=== PATIENT | male | born 1975 | race Caucasian/White ===

== ENCOUNTER 2024-12-11 20:07 | Emergency (ER) | payer MEDICAID ==
[~2024-12-11] VITALS: Ht 160 cm; Wt 88.0 kg
[2024-12-11 20:17] VITALS: TEMP 36.6; O2SAT 98
[2024-12-11 20:51] LABS: BASOPHILS % 0.5 % (0.0-2.0); EOSINOPHILS % 0.9 % (0.0-5.0); HEMOGLOBIN. 14.2 g/dL (14.0-18.0); LYMPHOCYTES % 22.9 % (20.0-50.0); MEAN CORPUSCULAR HGB CONC 33.8 g/dL (31.0-37.0); MEAN CORPUSCULAR VOLUME 94.6 fL (80.0-94.0); MEAN PLATELET VOLUME 7.5 fl (7.4-10.4); MONOCYTES % 6.2 % (2.0-8.0); NEUTROPHILS % 69.5 % (40.0-76.0); PLATELET 300 x1000/uL (130-400); RED BLOOD CELL COUNT 4.43 mill/uL (4.7-6.1); RED CELL DISTRIBUTION WIDTH 13.1 % (11.6-14.6); WHITE BLOOD COUNT 6.9 x1000/uL (4.5-11.0)
[2024-12-11] MEDS: DIPHENHYDRAMINE 50MG/ML VIAL IV ONE (20:57)
[2024-12-11] MEDS: KETOROLAC 30MG/ML VIAL IV ONE (20:57)
[2024-12-11 20:58] LABS: CHLORIDE 109 mEq/L (98-107); POTASSIUM 3.9 mEq/L (3.5-5.1)
[2024-12-11] MEDS: MECLIZINE 25MG TABLET PO ONE (20:58)
[2024-12-11 20:59] LABS: CARBON DIOXIDE 25 mEq/L (21-32); SODIUM 140 mEq/L (136-145)
[2024-12-11 21:00] LABS: CALCIUM 9.2 mg/dL (8.7-10.4)
[2024-12-11 21:01] LABS: INR 0.9; PROTHROMBIN TIME 9.9 sec (9.6-11.0)
[2024-12-11 21:04] LABS: CREATININE 0.7 mg/dL (0.6-1.3); GLUCOSE 153 mg/dL (70-105)
[2024-12-11 21:05] LABS: ETHANOL BLOOD < 10 mg/dL (<10); UREA NITROGEN BLOOD 19 mg/dL (9-23)
[2024-12-11 21:27] LABS: TROPONIN I HIGH SENSITIVITY < 4 ng/L (3.0-53)
[2024-12-11] MEDS ORDERED: MECL-299 MT (22:18)
[2024-12-11 22:45] VITALS: BP 121/80; PULSE 64; RESP 19; O2SAT 97
== END 2024-12-11 22:50 | disposition home or self-care (01) ==
LOC: ER 20:07
DX: R42 Dizziness and giddiness (principal); G43.909 Migraine, unspecified, not intractable, without status migrainosus; E11.9 Type 2 diabetes mellitus without complications; I10 Essential (primary) hypertension
CPT/HCPCS: 80048; 80320; 83690; 85025; 85610; 84484; 36415; 71045; 70450; 96374; 96375; 99285; J8597; J1200; J1885; G0480